=== PATIENT | male | born 1960 | race Caucasian/White ===

== ENCOUNTER 2016-09-02 13:52 | Emergency (ER) | payer MEDICARE | END 2016-09-02 15:33 | disposition home or self-care (01) | LOC: ER1 13:52 | DX: L02.415 Cutaneous abscess of right lower limb (principal); I10 Essential (primary) hypertension; J44.9 Chronic obstructive pulmonary disease, unspecified; M54.9 Dorsalgia, unspecified; G89.29 Other chronic pain; Z79.891 Long term (current) use of opiate analgesic; Z79.899 Other long term (current) drug therapy | CPT/HCPCS: 10061; 87070; 87077; 87186; 87205; 99283 ==

== ENCOUNTER 2016-09-04 13:52 | Emergency (ER) | payer MEDICARE | END 2016-09-04 15:03 | disposition home or self-care (01) | LOC: ER1 13:52 | DX: L02.415 Cutaneous abscess of right lower limb (principal); I10 Essential (primary) hypertension; Z79.82 Long term (current) use of aspirin; Z79.899 Other long term (current) drug therapy | CPT/HCPCS: 99282 ==

== ENCOUNTER → 2016-10-15 | Outpatient (CLI) | payer MEDICARE | LOC: RAD 18:17 | DX: M51.34 Other intervertebral disc degeneration, thoracic region (principal); M51.36 Other intervertebral disc degeneration, lumbar region; M50.30 Other cervical disc degeneration, unspecified cervical region; M51.86 Other intervertebral disc disorders, lumbar region; M50.80 Other cervical disc disorders, unspecified cervical region; J44.9 Chronic obstructive pulmonary disease, unspecified; M26.69 Other specified disorders of temporomandibular joint; I10 Essential (primary) hypertension; Z87.891 Personal history of nicotine dependence | CPT/HCPCS: 72050; 72072; 72110 ==